=== PATIENT | male | born 1950 | race Caucasian/White ===

== ENCOUNTER 2018-10-22 08:12 | Day surgery (SDC) | payer MEDICARE ==
[2018-10-22] MEDS ORDERED: PROPOFOL 10 MG/ML VIAL IV ONE (08:13)
[2018-10-22] MEDS ORDERED: LIDOCAINE 2% MDV (20MG/ML) 20ML VIAL IV ONE (08:13)
--- NOTE | 2018-10-23 08:30 | Operative Note ---
DATE OF SURGERY: 10/22/2018 SURGEON: Jason Cobos DO REFERRING PHYSICIAN: Charles Martin D.O. OPERATION: ATTEMPTED COLONOSCOPY, FAILED COLONOSCOPY SECONDARY TO POOR COLON PREPARATION. INDICATION: Colorectal cancer screening. His last examination was 10 years ago. ANESTHESIA: Intravenous sedation was administered by the Department of Anesthesiology and included Diprivan titrated to effect. PROCEDURE: Following informed consent from this alert individual, including a discussion of the risks and benefits of the procedure and opportunity for the patient to ask questions, the patient was in the left lateral decubitus position. Digital rectal examination was performed. No abnormalities were noted. Following this, the Olympus PCF 180 video colonoscope was inserted in the rectum without resistance. The rectal mucosa unfortunately had a fair amount of retained liquid and some semi-solid stool noted. The colonoscope was then further advanced up through the remainder of the bowel to the level of the transverse colon. At this point, there was a marked amount of retained stool precluding evaluation of the mucosa. The stool was liquid and semi-solid. From this point, the colonoscope was then withdrawn. There were a few diverticula noted in the sigmoid colon, but no other changes are appreciated. Retroflexion in the rectum again revealed retained stool. The endoscope was straightened and removed. The patient tolerated the procedure well and was returned to the recovery area in stable condition. IMPRESSION: Failed colonoscopy secondary to poor colon preparation. RECOMMENDATIONS: The patient will have a recheck colonoscopy with additional prep. He followed all of his instructions appropriately, but preparation was suboptimal. Followup will be with Dr. Martin as well. CC: Dr. Jason MENSAH
== END 2018-10-22 09:56 | disposition home or self-care (01) ==
LOC: HOP 08:12
PROVIDERS: ATTEND Internal Medicine Gastroenterology
DX: Z12.11 Encounter for screening for malignant neoplasm of colon (principal); K57.30 Diverticulosis of large intestine without perforation or abscess without bleeding; Z53.09 Procedure and treatment not carried out because of other contraindication; I10 Essential (primary) hypertension; R60.9 Edema, unspecified
CPT/HCPCS: 00812; G0121

== ENCOUNTER 2019-01-28 10:49 | Day surgery (SDC) | payer MEDICARE ==
[2019-01-28] MEDS ORDERED: LIDOCAINE 2% MDV (20MG/ML) 20ML VIAL IV ONE ×2 (10:50)
--- NOTE | 2019-01-30 10:43 | Operative Note ---
OPERATION: COLONOSCOPY to the cecum with cold snare polypectomy x1. INDICATION: Colorectal cancer screening. ANESTHESIA: Intravenous sedation was administered by the department of anesthesiology and included Diprivan titrated to effect. PROCEDURE: Following informed consent from this alert individual including a discussion of the risks and benefits of the procedure and an opportunity for the patient to ask questions, the patient was in the left lateral decubitus position. A digital rectal examination was performed. No abnormalities were noted. Following this, the Olympus CIV068 video colonoscope was inserted into the rectum without resistance. The rectal mucosa had a normal appearance as visualized. There was some retained liquid and semi-solid stool noted. The colonoscope was advanced up through the bowel to the level of the cecum. The cecum was fairly well defined by noting the ileocecal valve and cecal pouch. There was some retained debris within the cecum, and washing and suctioning was employed vigorously. As best visualized, there were no changes noted in the mucosa. From this point, the colonoscope was then withdrawn. Overall, the colon preparation was fair following extensive washing and suctioning throughout. In the transverse colon, there was a 6 mm polyp noted which was removed with cold snare polypectomy and suctioned through the colonoscope into a collection trap. No other polyps were seen throughout. Diverticulosis was noted in the sigmoid colon. Retroflexion in the rectum was endoscopically unremarkable. The endoscope was straightened and withdrawn. The patient tolerated the procedure well and was returned to the recovery area in stable condition. IMPRESSION: 1. A 6 mm transverse colon polyp removed with cold snare polypectomy. 2. Sigmoid diverticulosis. 3. Fair colon preparation overall with suctioning and washing employed vigorously. RECOMMENDATIONS: Because of the patient's fair prep, I did recommend a recheck colonoscopy in 3 years' time. Further recommendations may be forthcoming pending the pathology as well. Note: This is the second attempt at cleaning the colon. He had an examination attempted 3 months ago with a very poor prep and incomplete examination. As always, thank you for allowing me to participate in the care of your patient. MAKENNA
== END 2019-01-28 13:25 | disposition home or self-care (01) ==
LOC: HOP 10:49
PROVIDERS: ATTEND Internal Medicine Gastroenterology
DX: Z12.11 Encounter for screening for malignant neoplasm of colon (principal); D12.3 Benign neoplasm of transverse colon; K57.30 Diverticulosis of large intestine without perforation or abscess without bleeding; E11.9 Type 2 diabetes mellitus without complications; I10 Essential (primary) hypertension; E78.00 Pure hypercholesterolemia, unspecified; R60.9 Edema, unspecified

== ENCOUNTER 2019-02-02 11:21 | Emergency (ER) | payer MEDICARE ==
[2019-02-02] MEDS ORDERED: ACETAMINOPHEN 500 MG TABLET PO ONE (11:51)
[2019-02-02 12:30] LABS: BILIRUBIN,TOTAL 0.9 mg/dL (0.2-1.0); CREATININE 1.3 mg/dL (0.7-1.2)
[2019-02-02 12:35] LABS: ALBUMIN 3.5 g/dL (4.0-5.0)
[2019-02-02 12:37] LABS: LACTIC ACID 0.8 mmol/L (0.5-2.2)
[2019-02-02 12:46] LABS: THYROID STIMULATING HORMONE 1.69 uIU/mL (0.270-4.20)
[2019-02-02 12:53] LABS: ERYTHROCYTE SEDIMENTATION RATE 91 mm/hr (0-20)
--- NOTE | 2019-02-02 13:11 | Emergency Department Record ---
History of Present Illness - General Chief complaint: Weakness Stated complaint: WEAKNESS/CHILLS Time Seen by Provider: 02/02/19 11:40 Source: Patient, Family Mode of Arrival: Ambulatory Limitations: No limitations - History of Present Illness Initial comments: pt had a colonoscopy 5 d ago. it went well but he has not been feeling well ever since. he has had fevers and weakness. he has no hoyos and no abd pain. he states his thighs feel weak. he has a cough. no n/v/c/d MD Complaint: Generalized weakness Onset/Timin -: Days(s) Location: Generalized Severity: Mild Consistency: Intermittent - [place] Coma Scale Eye Response: (4) Open spontaneously Motor Response: (6) Obeys commands Verbal Response: (5) Oriented [place] Total: 15 - Symptoms of Stroke Symptoms of stroke: Unsteady When Walking - Related Data Home Medications Medication Instructions Recorded Confirmed Last Taken Amlodipine Besylate 5 mg PO BID 02/02/19 02/02/19 Unknown Ascorbic Acid [Vitamin C] 1,000 mg PO DAILY 02/02/19 02/02/19 Unknown Aspirin [Aspir-Low] 81 mg PO DAILY 02/02/19 02/02/19 Unknown Atenolol 100 mg PO BID 02/02/19 02/02/19 Unknown Cholecalciferol (Vitamin D3) 50,000 unit PO WEEKLY 02/02/19 02/02/19 Unknown [Vitamin D] Clonidine HCl 0.3 mg PO TID 02/02/19 02/02/19 Unknown Diltiazem HCl [Diltiazem 24Hr ER] 240 mg PO DAILY 02/02/19 02/02/19 Unknown Folic Acid 0.8 mg PO DAILY 02/02/19 02/02/19 Unknown Furosemide 40 mg PO DAILY 02/02/19 02/02/19 Unknown Glucos Sul 2Kcl/MSM/Chond/C/Mn 1 each PO BID 02/02/19 02/02/19 Unknown [Glucosamine Chondroitin Cap] Insulin Detemir [Levemir] 150 unit SQ QAM 02/02/19 02/02/19 Unknown Lisinopril 40 mg PO BID 02/02/19 02/02/19 Unknown Lovastatin 20 mg PO DAILY 02/02/19 02/02/19 Unknown Magnesium Oxide [Magnesium] 500 mg PO DAILY 02/02/19 02/02/19 Unknown Metformin HCl 500 mg PO BID 02/02/19 02/02/19 Unknown Multivitamin [One Daily 1 each PO DAILY 02/02/19 02/02/19 Unknown Multivitamin] Niacin 6 tab PO DAILY 02/02/19 02/02/19 Unknown [place]-3/Dha/Epa/Fish Oil [[place] 3 1 each PO DAILY 02/02/19 02/02/19 Unknown 500 Softgel] Repaglinide 2 mg PO TID 02/02/19 02/02/19 Unknown Terazosin HCl 2 mg PO QHS 02/02/19 02/02/19 Unknown Ubidecarenone [Co Q-10] 100 mg PO DAILY 02/02/19 02/02/19 Unknown Vitamin E 400 unit PO DAILY 02/02/19 02/02/19 Unknown Allergies Allergy/AdvReac Type Severity Reaction Status Date / Time No Known Drug Allergies Allergy Verified 02/02/19 11:33 Travel Screening - Travel/Exposure Within Last 30 Days Have you traveled within the last 30 days?: No Review of Systems Reviewed: No additional complaints except as noted below Constitutional: Reports: As per HPI. Denies: Chills, Fever, Malaise, Night sweats, Weakness, Weight change Eyes: Reports: As per HPI. Denies: Eye discharge, Eye pain, Photophobia, Vision change ENT: Reports: As per HPI. Denies: Congestion, Dental pain, Ear pain, Epistaxis, Hearing loss, Throat pain Respiratory: Reports: As per HPI. Denies: Cough, Dyspnea, Hemoptysis, Stridor, Wheezes Cardiovascular: Reports: As per HPI. Denies: Arrhythmia, Chest pain, Dyspnea on exertion, Edema, Murmurs, Orthopnea, Palpitations, Paroxysmal nocturnal dyspnea, Rheumatic Fever, Syncope Endocrine: Reports: As per HPI. Denies: Fatigue, Heat or cold intolerance, Poly dipsia, Polyuria Gastrointestinal: Reports: As per HPI. Denies: Abdominal pain, Constipation, Diarrhea, Hematemesis, Hematochezia, Melena, Nausea, Vomiting Genitourinary: Reports: As per HPI. Denies: Dysuria, Frequency, Hematuria, Incontinence, Retention, Testicular pain, Testicular mass, Urgency Musculoskeletal: Reports: As per HPI. Denies: Arthralgia, Back pain, Gout, Joint swelling, Myalgia, Neck pain Skin: Reports: As per HPI. Denies: Bruising, Change in color, Change in hair/nails, Lesions, Pruritus, Rash Neurological: Reports: As per HPI. Denies: Abnormal gait, Confusion, Headache, Numbness, Paresthesias, Seizure, Tingling, Tremors, Vertigo, Weakness Psychiatric: Reports: As per HPI. Denies: Anxiety, Auditory hallucinations, Dep ression, Homicidal thoughts, Suicidal thoughts, Visual hallucinations Hematological/Lymphatic: Reports: As per HPI. Denies: Anemia, Blood Clots, Easy bleeding, Easy bruising, Swollen glands Past Medical History - SOCIAL HISTORY Smoking Status: Never smoker Alcohol Use: None Drug Use: None - RESPIRATORY Hx Respiratory Disorders: No - CARDIOVASCULAR Hx Cardio Disorders: Yes Hx Edema: Yes Hx Hypertension: Yes Comment:: high cholesterol - NEURO Hx Neuro Disorders: No - GI Hx GI Disorders: Yes Hx of Polyps: Yes - Hx Genitourinary Disorders: No - ENDOCRINE Hx Endocrine Disorders: Yes Hx Diabetes: Yes - MUSCULOSKELETAL Hx Musculoskeletal Disorders: No - PSYCH Hx Psych Problems: No - HEMATOLOGY/ONCOLOGY Hx Hematology/Oncology Disorders: No Family Medical History Any Significant Family History?: No Physical Exam - General General Appearance: Alert, Oriented x3, Cooperative, No acute distress - Head Head exam: Normal inspection - Eye Eye exam: Normal appearance, PERRL, EOMI Pupils: Normal accommodation - ENT ENT exam: Normal exam, Mucous membranes moist, Normal external ear exam, Normal orophraynx Ear exam: Normal external inspection. negative: External canal tenderness Nasal Exam: Normal inspection. negative: Discharge, Sinus tenderness Mouth exam: Normal external inspection, Tongue normal Teeth exam: Normal inspection. negative: Dental caries Throat exam: Normal inspection. negative: Tonsillar erythema, Tonsillar exudate - Neck Neck exam: Normal inspection, Full ROM. negative: Tenderness - Respiratory Respiratory exam: Normal lung sounds bilaterally. negative: Respiratory distress - Cardiovascular Cardiovascular Exam: Regular rate, Normal rhythm, Normal heart sounds - GI/Abdominal GI/Abdominal exam: Soft, Normal bowel sounds. negative: Tenderness - Rectal Rectal exam: Deferred - exam: Deferred - Extremities Extremities exam: Normal inspection, Full ROM, Normal capillary refill. negative: Tenderness - Back Back exam: Reports: Normal inspection, Full ROM. Denies: Muscle spasm, Rash noted, Tenderness - Neurological Neurological exam: Alert, CN II-XII intact, Normal gait, Oriented X3 - Psychiatric Psychiatric exam: Normal affect, Normal mood - Skin Skin exam: Dry, Intact, Normal color, Warm Course Vital Signs 02/02/19 11:26 Temperature 101.3 F H Pulse Rate 79 Respiratory 18 Rate Blood Pressure 142/69 Pulse Ox 95 - Reevaluation(s) Reevaluation #1: 02/02/19 13:58 pt has severe neutropenia. being transferred to [facility] Reevaluation #2: 02/02/19 14:14 dr pruett requested cefepime be hung Medical Decision Making - Lab Data Result diagrams: 02/02/19 11:47 02/02/19 11:47 Lab Results 02/02/19 02/02/19 Range/Units 11:47 11:47 ESR 91 H (0-20) mm/hr Sodium 141 (136-145) mmol/L Potassium 4.0 (3.4-4.5) mmol/L Chloride 104 (98-107) mmol/L Carbon Dioxide 25.0 (22-29) mmol/L Anion Gap 12.0 (7-16) BUN 14 (8-23) mg/dL Creatinine 1.3 H (0.7-1.2) mg/dL Estimated GFR 58 mL/min Random Glucose 244 H (74-109) mg/dL Lactic Acid 0.8 (0.5-2.2) mmol/L Calcium 9.4 (8.8-10.2) mg/dL Total Bilirubin 0.90 (0.2-1.0) mg/dL AST 33 (10.0-50.0) U/L ALT 40 (<41) U/L Alkaline Phosphatase 73 (40-129) U/L Creatine Kinase 87 (39-308) U/L Total Protein 7.0 (6.6-8.7) g/dL Albumin 3.5 L (4.0-5.0) g/dL Globulin 3.5 (1.4-4.8) gm/dL Albumin/Globulin Ratio 1.0 L (1.1-1.8) TSH 1.69 (0.270-4.20) uIU/mL Disposition Disposition: Transfer Clinical Impression: Pancytopenia Neutropenia Qualifiers: Neutropenia type: unspecified Qualified Code(s): D70.9 - Neutropenia, unspecified Disposition: Acute Care Hospital Transfer Transfer To: [facility] Reason For Transfer: needs infectious disease, hematology Accepting Physician: dr pruett Time Discussed w/Accepting Physician: 14:14 Forms: Patient Portal Access Quality - Quality Measures Quality Measures: N/A - Blood Pressure Screening Does Patient Have Any of the Following: Active Dx of HTN Blood Pressure Classification: Hypertensive Reading Systolic Measurement: 142 Diastolic Measurement: 69 Screening for High Blood Pressure: Patient Exclusion, Hx of HTN [[id number]]
[2019-02-02 13:41] LABS: URINE APPEARANCE CLEAR; URINE BILIRUBIN SMALL (NEGATIVE); URINE BLOOD SMALL (NEGATIVE); URINE COLOR YELLOW; URINE KETONE NEGATIVE (NEGATIVE); URINE LEUKOCYTE ESTERASE NEGATIVE (NEGATIVE); URINE NITRITE NEGATIVE (NEGATIVE); URINE UROBILINOGEN 0.2 E.U./dL (0.20 - 1.00)
[2019-02-02 13:58] LABS: URINE EPITHELIAL CELLS 0 - 2 (FEW); URINE FINE GRANULAR CAST FEW /lpf; URINE RBC 0 - 2 (NONE SEEN)
[2019-02-02] MEDS ORDERED: CEFEPIME HCL 2 GM in 0.9 % SODIUM CHLORIDE 100ML 100 ML IVPB ONE (14:11)
--- NOTE | 2019-02-04 21:04 | CT SCAN REPORT ---
EXAM: CT SCAN HEAD WO CONTRAST HISTORY: PATIENT HAS LOSS OF BALANCE. BODY WEAKNESS. TECHNIQUE: Serial axial CT scan of the head was performed at 2.5 mm intervals from the base of the skull to the apex without the use of intravenous contrast. No comparison CT's are available. FINDINGS: Moderate generalized parenchymal volume loss is noted. There is no mass or mass effect. Moderate periventricular and subcortical white matter chronic small vessel ischemic changes are identified. There is no CT evidence of intra or extraaxial fluid to suggest bleeding. Bone windows demonstrate no CT evidence of a fracture or dislocation of the skull. Paranasal sinuses demonstrate significant mucosal thickening within the right maxillary sinus. Clinical correlation for chronic sinusitis is recommended. IMPRESSION: 1. CHRONIC SMALL VESSEL ISCHEMIC CHANGES ARE NOTED WITH NO CT EVIDENCE OF AN ACUTE INTRACRANIAL PROCESS. 2. FINDINGS SUGGESTIVE OF CHRONIC SINUSITIS. JOB NUMBER: [id number] [facility]
--- NOTE | 2019-02-04 21:06 | RADIOLOGY REPORT ---
EXAM: CHEST 1 VIEW HISTORY: PATIENT HAS FEVER AND WEAKNESS. TECHNIQUE: A single AP portable view of the chest is provided without comparison examinations. FINDINGS: The cardiomediastinal silhouette is within normal limits for size and contour. Bhavana appear unremarkable. There is no radiographic evidence of a focal infiltrate, pleural effusion, or pneumothorax. IMPRESSION: NO RADIOGRAPHIC EVIDENCE OF AN ACUTE INTRATHORACIC PROCESS. [facility]: [id number] [facility]
== END 2019-02-02 15:35 | disposition short-term general hospital (02) ==
LOC: MERGE 11:21 → ER 11:21
DX: D61.818 Other pancytopenia (principal); R50.81 Fever presenting with conditions classified elsewhere; R53.1 Weakness; E11.9 Type 2 diabetes mellitus without complications; I10 Essential (primary) hypertension; Z79.4 Long term (current) use of insulin; Z98.890 Other specified postprocedural states
CPT/HCPCS: 70450; 71045; 80053; 81001; 82550; 83605; 84443; 85025; 85651; 96365; 99285